=== PATIENT | male | born 1955 ===

== ENCOUNTER 2017-03-16 16:01 | Inpatient (IN) | payer MEDICARE ==
--- NOTE | 2017-03-16 17:03 | ED PDOC ---
HPI: Psych/Substance Abuse Time Seen by Provider: 03/16/17 16:44 Chief Complaint (Nursing): Psychiatric Evaluation Chief Complaint (Provider): Psychiatric Evaluation History Per: Patient History/Exam Limitations: no limitations Onset/Duration Of Symptoms: Days Current Symptoms Are (Timing): Still Present Associated Symptoms: Suicidal Thoughts, Other (Insomnia) Additional Complaint(s): Jeff Smart is a 62 year old male with a history of depression who presents to the ER for psychiatric evaluation. Patient complains of insomnia and suicidal ideation, with a plan to hang himself. Of note, patient was admitted at [facility] and discharged 2 days ago with rxs for cogenin, Depakote, Neurontin, remeron, Risperdal, Zoloft, and desyrel. Patient states he was unable to fill the prescriptions and is requesting medications to sleep. Also complains of back pain, which he attributes to his difficulty sleeping. PMD: None Past Medical History Reviewed: Historical Data, Nursing Documentation, Vital Signs Vital Signs: Last Vital Signs Temp 98.0 F 03/16/17 16:30 Pulse 97 H 03/16/17 16:30 Resp 18 03/16/17 16:30 BP 142/87 03/16/17 16:30 Pulse Ox 99 03/16/17 16:30 - Medical History PMH: Bipolar Disorder, Fractures (right elbow), Chronic Pain (right elbow) Denies: Diabetes, Hepatitis, HIV, HTN, Seizures, Sexually Transmitted Disease - Family History Family History: States: Unknown Family Hx - Immunization History Hx Tetanus Toxoid Vaccination: No Hx Influenza Vaccination: No Hx Pneumococcal Vaccination: No - Home Medications Home Medications: Ambulatory Orders Medication Instructions Recorded Benztropine [Benztropine Mesylate] 1 mg PO HS 03/03/17 Risperidone 3 mg PO HS 03/03/17 Sertraline [Zoloft] 25 mg PO DAILY 03/03/17 Benztropine [Cogentin] 1 mg PO HS #30 tab 03/14/17 Divalproex [Depakote DR] 250 mg PO BID #60 tcp 03/14/17 Gabapentin [Neurontin] 300 mg PO BID #60 cap 03/14/17 Mirtazapine [Remeron] 30 mg PO HS #30 tab 03/14/17 Sertraline [Zoloft] 50 mg PO DAILY #30 tab 03/14/17 risperiDONE [RisperDAL Tab] 3 mg PO HS #30 tab 03/14/17 traZODone [Desyrel] 100 mg PO HS #60 tab 03/14/17 - Allergies Allergies/Adverse Reactions: Allergies Allergy/AdvReac Type Severity Reaction Status Date / Time No Known Allergies Allergy Verified 03/03/17 15:23 Review of Systems ROS Statement: Except As Marked, All Systems Reviewed And Found Negative Musculoskeletal: Positive for: Back Pain Neurological: Positive for: Other (Insomnia) Psych: Positive for: Suicidal ideation (with plan). Negative for: Other ( homicidal ideation) Physical Exam - Reviewed Nursing Documentation Reviewed: Yes Vital Signs Reviewed: Yes - Physical Exam Appears: Positive for: Non-toxic, No Acute Distress Head Exam: Positive for: ATRAUMATIC, NORMAL INSPECTION, NORMOCEPHALIC Skin: Positive for: Normal Color, Warm, Dry Eye Exam: Positive for: EOMI, Normal appearance, PERRL Neck: Positive for: Normal, Painless ROM Cardiovascular/Chest: Positive for: Regular Rate, Rhythm. Negative for: Murmur Respiratory: Positive for: Normal Breath Sounds. Negative for: Respiratory Distress Gastrointestinal/Abdominal: Positive for: Normal Exam, Soft. Negative for: Tenderness Back: Positive for: Other (Mild abrasion noted to mid-thoracic spine, no tenderness elicited and no erythema). Negative for: L CVA Tenderness, R CVA Tenderness, Vertebral Tenderness Extremity: Positive for: Normal ROM. 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 Pt meets criteria for admission and is medically stable for psychiatric admission. DEPRESSION DR. DOUGLAS Medical Decision Making Medical Decision Making: Time: 16:49 Initial Plan: --EKG --Urinalysis --Alcohol serum --CMP --Urine drug screen --CBC w/ differential --Chest x-ray --Motrin 600 mg PO --Placed on 1:1 observation --Pending crisis evaluation Chest X-ray FINDINGS: LUNGS: Clear. PLEURA: No pneumothorax or pleural fluid seen. CARDIOVASCULAR: No radiographic findings to suggest acute or significant cardiovascular disease. OSSEOUS STRUCTURES: No significant abnormalities. VISUALIZED UPPER ABDOMEN: Normal. OTHER FINDINGS: None. IMPRESSION: No active disease. Scribe Attestation: Documented by Erika Mccarty, acting as a scribe for Ben Puente PA-C Provider Scribe Attestation: All medical record entries made by the Scribe were at my direction and personally dictated by me. I have reviewed the chart and agree that the record accurately reflects my personal performance of the history, physical exam, medical decision making, and the department course for this patient. I have also personally directed, reviewed, and agree with the discharge instructions and disposition. Disposition - Clinical Impression Clinical Impression: Depression - Patient ED Disposition Is Patient to be Admitted: Yes - Disposition Disposition Time: 18:00 Condition: STABLE - Pt Status Changed To: Hospital Disposition Of: Inpatient - Admit Certification Admit to Inpatient:: After my assessment, the patient will require hospitalization for at least two midnights. This is because of the severity of symptoms shown, intensity of services needed, and/or the medical risk in this patient being treated as an outpatient.
--- NOTE | 2017-03-16 17:42 | RAD ---
PROCEDURE: CHEST RADIOGRAPH, 1 VIEW HISTORY: routine COMPARISON: None available. FINDINGS: LUNGS: Clear. PLEURA: No pneumothorax or pleural fluid seen. CARDIOVASCULAR: No radiographic findings to suggest acute or significant cardiovascular disease. OSSEOUS STRUCTURES: No significant abnormalities. VISUALIZED UPPER ABDOMEN: Normal. OTHER FINDINGS: None. IMPRESSION: No active disease.
[2017-03-16 17:50] LABS: BASO % 0.7 % (0.0-2.0); EOS # 0.1 K/uL (0.0-0.7); EOS % 0.9 % (0.0-4.0); HEMOGLOBIN 14.1 g/dL (12.0-18.0); LYMPH # 2.4 K/uL (1.0-4.3); LYMPH % 33.8 % (20.0-40.0); MEAN CELL VOLUME 90.3 fl (80.0-94.0); MEAN CORPUSCULAR HEMOGLOBIN 30.7 pg (27.0-31.0); MEAN PLATELET VOLUME 7.7 fl (7.2-11.7); MONO # 0.9 K/uL (0.0-0.8); MONO % 12.5 % (0.0-10.0); NEUT # 3.6 K/uL (1.8-7.0); NEUT % 52.1 % (50.0-75.0); NRBC % 0.2 % (0.0-0.0); RBC 4.59 Mil/uL (4.40-5.90); RED CELL DISTRIBUTION WIDTH 12.9 % (11.5-14.5)
[2017-03-16 18:04] LABS: ALB/GLOB RATIO 1.3 (1.0-2.1); ALBUMIN 4.2 g/dL (3.5-5.0); ALT/SGPT 39 U/L (21-72); AST/SGOT 19 U/L (17-59); BLOOD UREA NITROGEN 22 mg/dl (9-20); CALCIUM 9.1 mg/dL (8.4-10.2); GFR AFRICAN-AMERICAN > 60; GFR NON-AFRICAN AMERICAN > 60
[2017-03-16 19:17] LABS: SQUAMOUS EPITHIAL < 1 /hpf (0-5); URINE BACTERIA RARE (<OCC); URINE BILIRUBIN NEGATIVE (NEGATIVE); URINE BLOOD NEGATIVE (NEGATIVE); URINE CLARITY SLIGHTY-CLOUDY (Clear); URINE COLOR YELLOW (YELLOW); URINE GLUCOSE (UA) NEG (Normal); URINE LEUKOCYTE ESTERASE NEG Leu/uL (Negative); URINE NITRATE NEGATIVE (NEGATIVE); URINE PROTEIN NEGATIVE (NEGATIVE)
[2017-03-16 19:23] LABS: BARBITURATES, UR NEGATIVE (NEGATIVE); BENZODIAZEPINES, UR NEGATIVE (NEGATIVE); OPIATES, UR NEGATIVE (NEGATIVE); PHENCYCLIDINE, UR NEGATIVE (NEGATIVE)
--- NOTE | 2017-03-16 20:58 | PCM.BM ---
<Duc Ozuna - Last Filed: 03/16/17 20:56> Treatment Plan Problems - Problems identified on initial assessmt Hopelessness/Helplessness Date Initiated: 03/16/17 Time Initiated: 20:56 (e) Assessment reference: NA Status: Active Priority: 1 Altered Sleep Pattern Date Initiated: 03/16/17 Time Initiated: 20:56 Assessment reference: NA Status: Active Priority: 2 Treatment assets and liabiliti Patient Assests: cooperative, self-reliant, ADL independent, negotiates basic needs Patient Liabilities: live alone, physical pain, financial problems, poor support system, relationship conflicts, legal issue - Milieu Protocol Maintain good personal hygiene: daily Encourage regular showers, daily Remind patient to perform daily oral care, daily Assist patient to perform ADL's Maintain personal safety: every shift Educate patient to report safety concerns to staff, every shift Monitor environment for contraband/sharps Medication safety: Monitor for expected outcome, potential side effects: every shift, Assess barriers to learning: every shift, Assess readiness for medication education: every shift <Naga Flowers - Last Filed: 03/18/17 16:55> Family Contact Family involvement: Famliy/SO not involved Family contact: Patient declines to allow family contact at present Family contact name: Pt denied. - Goals for Treatment Patient goals for treatment: Pt would like to be prescribed medicartion that will cause him to sleep as his insomnia is his major concern. Discharge/Continuing Care - Education Needs Education Needs: Patient Medication, Patient Diagnosis/Disease Process, Patient Coping Skills, Patient Aftercare Safety Plan - Discharge Discharge Criteria: Tolerates medication w/o severe side effects, Free of Suicidal thoughts, Free of agitation, Normal sleep pattern, Reduction of target symptoms Discharge to:: Home - Treatment Team Participation Discussed with Family/SO: No
[2017-03-16] MEDS ORDERED: Bismuth Subsalicylate 262 mg/15 ml Sus (240 ml) PO PRN (21:13)
[2017-03-16] MEDS ORDERED: Alum-Mag Hydrox-Simethicone Susp (30 mL) PO PRN (21:13)
[2017-03-16] MEDS ORDERED: Magnesium Hydroxide Susp 30 ml UD PO PRN (21:13)
[2017-03-16 21:47] VITALS: O2SAT 98
[2017-03-17] MEDS: Divalproex 250 mg DR(BID formulation) PO SCH ×2 (08:15→16:38)
[2017-03-17] MEDS ORDERED: Influenza Vaccine 18yr & older 0.5 ML/45 MCG SYR IM ONE (09:00)
[2017-03-17 10:38] LABS: T4 6.64 ug/dl (5.5-11.0)
[2017-03-17 10:44] LABS: % IRON SATURATION 33 % (20-55); IRON 95 ug/dL (49-181); TOTAL IRON BINDING CAPACITY 287 ug/dL (250-450)
[2017-03-17 10:56] LABS: FERRITIN 88.2 ng/Ml (17.9-464)
--- NOTE | 2017-03-17 12:16 | CARD ---
APPROVED REPORT EKG Measurement Heart [id number] <Conclusion> Normal sinus rhythm Normal ECG
--- NOTE | 2017-03-17 14:37 | PCM.PSYCH ---
Initial Psychiatric Evaluation - Initial Psychiatric Evaluation Type of Admission: Voluntary Chief Complaint (in patient's own words): presents to 3 via er [facility]-with complaints of suicidal ideation by hanging. reports that has not slept for many days, history of insomnia, bipolar. reports that was recently discharged from [facility] for similar complaints-rx: mirtazepine, valproic acid, desyrel, cogentin. reportedly pt was unable to obtain.l Pt. reports that is receiving SSD related the fracture of arm many years ago. reports that recently lost debit card for 2nd time and was not able to obtain replacement-could not get money to get medicine. Pt. is reportedly homeless for many years after selling home after becoming . Pt. reportedly became after 2nd left him because "I was feeling guilty about having had affair and telling her". Reportedly became depressed and developed insomnia. Pt. reports history of bipolar for more than 20 years. reportedly has been inpt. multiple times for depression/insomnia-becoming more depressed when developing problems sleeping. Pt. has been inpt. on one occasion for suicidal attempt by over dosing on antidepressants-was in hospital and had to have stomach pumped-reports attempt was impulsive. relates most of mood symptoms related to difficulty sleeping. pt. currently living in half way house on [address] [place] ". Pt. reportedly is on parole for allegedly "stealing a tractor (trailer)-was reported caught by police and was incarcerated in [facility]. Reports that was homeless and saw "keys in truck and took it for a ride". Pt. 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 reportedly stopped after reportedly falling "30 feet and shatter right arm". reportedly has had surgeries and there is "both a plate and screws". After falling, was reportedly not able to work and obtained SSD. Pt. has two sisters and two brothers all of which are adults-pt. admits an estranged relationship "don't know why". Denies having persons with which he can talk. Reports when was released from [facility] attempted to obtain opd services at [facility] and [facility]-reportedly was unable to do so. Admits to having been born in [facility] and later related locate to [place], [place]-has been a resident in [place] for over 42 years. Reportedly has completed high school. Denies substance use although urine toxicology was negative. Unable to recall pmd's name, previously treated by psychiatrist names "smooth". Reports that has sister in her seventies who is reportedly in a alf related to "alzheimer's disease". Pt. admits that both of his parents in their eighties related to "alzheimer's disease". Pt. denies having any major problems with memory. reports chronic pain right elbow/hand related to previously mentioned. Pt. reports previous response to "tylenol and motrin at the same time". Pt. reports lithium "had problems?", Zyprea, Rispderal had problems". Reports that n past had mirtazepine/Remeron and "did not work". Reports in past has had depakote and "did not work". Was on tegretol and it "did not work". Unable to give further details related to amount of time taken and doses or specific side effects. Patient's Reaction to Hospitalization: voluntary signed in History of Present Illness and Precipitating Events: see above Current Medications: Active Medications Generic Name Dose Route Start Last Admin Trade Name Freq PRN Reason Stop Dose Admin Acetaminophen 650 mg 03/16/17 21:13 Tylenol 325mg Tab PO Q4 PRN Pain, moderate (4-7) Al Hydrox/Mg Hydrox/Simethicone 30 ml 03/16/17 21:13 Maalox Plus 30 Ml PO Q4 PRN Dyspepsia Benztropine Mesylate 1 mg 03/16/17 22:00 03/16/17 22:12 Cogentin PO 1 mg HS REE Administration Bismuth Subsalicylate 524 mg 03/16/17 21:13 Pepto-Bismol PO Q4 PRN Diarrhea Divalproex Sodium 250 mg 03/17/17 09:00 03/17/17 08:[address](*Bid*) PO 250 mg BID REE Administration Gabapentin 300 mg 03/16/17 21:08 03/17/17 08:13 Neurontin PO 300 mg BID REE Administration Ibuprofen 800 mg 03/16/17 21:19 03/17/17 11:04 Motrin Tab PO 800 mg Q8 PRN Administration 4-10 pain Lorazepam 0.5 mg 03/16/17 21:13 Ativan PO 03/30/17 21:14 HS PRN Insomnia Lorazepam 0.5 mg 03/16/17 21:13 Ativan PO 03/30/17 21:14 Q6 PRN Anixety/Agitation Magnesium Hydroxide 30 ml 03/16/17 21:13 Milk Of Magnesia PO HS PRN Constipation Mirtazapine 30 mg 03/16/17 22:00 03/16/17 22:13 Remeron PO 30 mg HS REE Administration Risperidone 3 mg 03/16/17 22:00 03/16/17 22:13 Risperdal Tab PO 3 mg HS REE Administration Sertraline HCl 50 mg 03/17/17 09:00 03/17/17 08:13 Zoloft PO 50 mg DAILY REE Administration Trazodone HCl 100 mg 03/16/17 22:00 03/16/17 22:12 Desyrel PO 100 mg HS REE Administration Past Psychiatric History - Past Psychiatric History Prior Professional Help: both inpt and opd Prior Psychiatric Treatment: various hospitals including [facility], [facility] and [facility] History of ETOH/Drug Use: 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 for several weeks reports pt episodic use of thc reports smoking 2 cigarettes which is reportedly a decrease from before denies other substance use History of Family Illness: parents and sister with hx of alzheimer's disease Pertinent Medical Hx (Current Medical&Sleep Prob, Allergies): Allergies Allergy/AdvReac Type Severity Reaction Status Date / Time No Known Allergies Allergy Verified 03/03/17 15:23 Benztropine [Benztropine Mesylate] 1 mg PO HS 03/03/17 Risperidone 3 mg PO HS 03/03/17 Sertraline [Zoloft] 25 mg PO DAILY 03/03/17 Benztropine [Cogentin] 1 mg PO HS #30 tab 03/14/17 Divalproex [Depakote DR] 250 mg PO BID #60 tcp 03/14/17 Gabapentin [Neurontin] 300 mg PO BID #60 cap 03/14/17 Mirtazapine [Remeron] 30 mg PO HS #30 tab 03/14/17 Sertraline [Zoloft] 50 mg PO DAILY #30 tab 03/14/17 risperiDONE [RisperDAL Tab] 3 mg PO HS #30 tab 03/14/17 traZODone [Desyrel] 100 mg PO HS #60 tab 03/14/17 Review of Systems - Musculoskeletal Additional comments: right elbow pain/hand pain related to hx of fall many years ago=-reportedly has plate and pins - Psychiatric Psychiatric: Abnormal Sleep Pattern, Anxiety, Hopelessness, Suicidal Ideation Additional comments: reports can contract for safety, hopelessness related group home issue with trouble sleeping Mental Status Examination - Personal Presentation Personal Presentation: Looks older than stated age - Affect Affect: Constricted - Motor Activity Motor Activity: Calm, Psychomotor Retardation - Reliability in Providing Information Reliability in Providing Information: Other Additional comments: mood, ?conflicting aspects of history e.g related to when became ill when left -various amounts of time given - Obsessions/Compulsions Obsessions: Yes Description of Obsession/Compulsion: with not sleeping - Cognitive Functions Orientation: Person, Place, Situation, Time Attention/Concentration: Easily distracted Judgement: Imparied, as evidence by: Other Memory: Recent intact, as evidence by: 05/12 object recall - Risk Risk: Suicidal - Strength & Assets Inventory Strength & Assets Inventory: Cooperative (homeless) DSM 5 DX - DSM 5 DSM 5 Diagnosis: Hx. Bipolar Disease Bipolar I Most Recent Episode Mixed Insomnia hx. right arm fx/remote with plate and screws Homeless Estrangement from siblins - Recommended/Plan of Treatment Treatment Recommendations and Plan of Treatment: admission per attending vital signs/clinical observation per protocol and per status hospitalist consult nutrition consult Start Doxepin 10mg tab-1to 2 tabs po hs prn insomnia*try one first review get up slowly possible falls precautions possible constipation possible changes in mood possible s/i notify staff Start Topamax 25mg po 9a/9p-assess monitor intake/appetite and weight-can increase rx per clinical status Start Doxepin 10mg tab -1 to 2 tabs hs prn for insomnia-try one tab first MVI one tab po day Motrin 800mg po every eight hours prn pain more than 5 out of 10 scale with food Discharge planning in progress repeat cmp-had elevated creatinine and bun Projected ELOS: 3-5 days Prognosis: guarded Discharge Plan and Discharge Criteria: safety - Smoking Cessation Smoking Cessation Initiated: No Reason for not providing: pt defers reports only smoking 1-2 cigarettes per day
[2017-03-17] MEDS ORDERED: Nasal Spray(Ocean spray) NAS PRN (16:54)
--- NOTE | 2017-03-17 19:14 | CP.PCM.HP ---
History of Present Illness - History of Present Illness History of Present Illness: CC: Depression This is a 62 year old male with past medical history significant for bipolar disorder, insomnia, cataract surgery years ago. [facility] depression and recent suicidal attempt. The patient is a poor historian and only able to give limited information. He is noted to be having right arm nerve pain which he has had since 1997 after fx to his right elbow. He is supposed to be on Gabapentin for this however he is noncompliant with his medications. He is also complaining of nasal dryness and irritation at this time. He is also complaining of blurry vision worsening over the last year. No other complaints, denies cp/sob/n/v/d/f/c. Present on Admission - Present on Admission Any Indicators Present on Admission: No Review of Systems - Review of Systems Review of Systems: A 12 point review of systems was conducted and found to be grossly negative other than what was mentioned in the History of Present Illness. Past Patient History - Infectious Disease Hx of Infectious Diseases: None - Past Social History Smoking Status: Former Smoker - CARDIAC Hx Hypertension: No - PULMONARY Hx Tuberculosis: No - NEUROLOGICAL Hx Seizures: No - HEENT Hx HEENT Problems: Yes Other/Comment: Deviated Septum - HEMATOLOGICAL/ONCOLOGICAL Hx Human Immunodeficiency Virus (HIV): No - MUSCULOSKELETAL/RHEUMATOLOGICAL Hx Falls: No Hx Fractures: Yes (right elbow) - GENITOURINARY/GYNECOLOGICAL Hx Sexually Transmitted Disorders: No - PSYCHIATRIC Hx Substance Use: No - SURGICAL HISTORY Hx Surgeries: Yes Other/Comment: hand surgery,plates and screw on right elbow,hernia repair, cataract surgery both eyes - ANESTHESIA Hx Anesthesia: Yes Hx Anesthesia Reactions: No Meds Allergies/Adverse Reactions: Allergies Allergy/AdvReac Type Severity Reaction Status Date / Time No Known Allergies Allergy Verified 03/03/17 15:23 Physical Exam - Additional Findings Additional findings: Physical exam: Constitutional- cooperative, awake, alert, forgetful, thin. Head- NCAT. s Eye- + Anisocoria. + right eye miosis with right eye ptosis. EOMI ENT- normal exam, MMM. Poor dental hygiene. Neck- normal inspection, supple, no JVD Respiratory- CTAB, no wheezes rales rhonchi Cardiovascular- RRR, +S1, +S2 no MRG GI/Abdominal- normal bowel sounds, soft, no mass, no hsm Skin- warm, dry Extremities Exam- normal capillary refill, normal inspection Neurological Exam- alert, awake, oriented Psych- Depressed mood, flat affect Results - Vital Signs Recent Vital Signs: Last Vital Signs Temp 98.2 F 03/17/17 15:34 Pulse 80 03/17/17 15:34 Resp 20 03/17/17 15:34 BP 94/61 L 03/17/17 15:34 Pulse Ox 98 03/16/17 21:46 - Labs Result Diagrams: 03/16/17 17:45 03/16/17 17:45 Labs: Laboratory Results - last 24 hr 03/16/17 03/16/17 03/17/17 19:02 19:02 08:30 Iron TIBC % Saturation Ferritin 88.2 Triglycerides 108 Cholesterol 189 LDL Cholesterol Direct 144 H HDL Cholesterol 35 Vitamin B12 426 Free T4 Thyroxine (T4) 6.64 TSH 3rd Generation 0.78 Urine Color Yellow Urine Clarity Slighty-cloudy Urine pH 5.0 Ur Specific [place] 1.031 H Urine Protein Negative Urine Glucose (UA) Neg Urine Ketones Trace Urine Blood Negative Urine Nitrate Negative Urine Bilirubin Negative Urine Urobilinogen 4.0 Ur Leukocyte Esterase Neg Urine RBC (Auto) 5 H Urine Microscopic WBC 2 Ur Squamous Epith Cells < 1 Urine Bacteria Rare Urine Opiates Screen Negative Urine Methadone Screen Negative Ur Barbiturates Screen Negative Ur Phencyclidine Scrn Negative Ur Amphetamines Screen Negative U Benzodiazepines Scrn Negative U Oth Cocaine Metabols Negative U Cannabinoids Screen Negative 03/17/17 03/17/17 08:30 08:30 Iron 95 TIBC 287 % Saturation 33 Ferritin Triglycerides Cholesterol LDL Cholesterol Direct HDL Cholesterol Vitamin B12 Free T4 0.94 Thyroxine (T4) TSH 3rd Generation Urine Color Urine Clarity Urine pH Ur Specific [place] Urine Protein Urine Glucose (UA) Urine Ketones Urine Blood Urine Nitrate Urine Bilirubin Urine Urobilinogen Ur Leukocyte Esterase Urine RBC (Auto) Urine Microscopic WBC Ur Squamous Epith Cells Urine Bacteria Urine Opiates Screen Urine Methadone Screen Ur Barbiturates Screen Ur Phencyclidine Scrn Ur Amphetamines Screen U Benzodiazepines Scrn U Oth Cocaine Metabols U Cannabinoids Screen Assessment & Plan - Assessment and Plan (Free Text) Plan: ASSESSMENT/PLAN This is a 62 yo male with pmh of bipolar disorder, insomnia, admitted to psychiatry, with progressively worsening blurriness of vision, anisocoria, with miosis of the right eye and ptosis. 1) Anisocoria with miosis and ptosis of the right eye... eval for Ajith's syndrome, also eval for CVA - Consultation with Dr. Magana, neurology for further workup - CT head without contrast and Carotid doppler ordered - Patient denies headache or focal weakness to suggest CVA 2) Hypercholesterolemia - Noted w/ Lipid profile on this admission - Patient is candidate for moderate to severe intesity statin - Start Lipitor 20 mg po HS - Discussed DASH diet w/ patient 3) Neuropathic pain to right arm, chronic - Continue Gabapentin - Ibuprofen PRN 4) Bipolar disorder w/ reported suicidal ideation, w/ insomnia - Zoloft 50 mg po daily - Topamax 25 mg po BID - Trazodone 100 mg po HS - Remeron 30 mg po HS 5) Dry nasal passages - Saline nasal spray PRN Thank you for the consultation.
[2017-03-18] MEDS: Divalproex 250 mg DR(BID formulation) PO SCH (08:50)
[2017-03-18 10:48] LABS: ALB/GLOB RATIO 1.2 (1.0-2.1); ALBUMIN 3.6 g/dL (3.5-5.0); ALT/SGPT 29 U/L (21-72); AST/SGOT 18 U/L (17-59); BLOOD UREA NITROGEN 9 mg/dl (9-20); CALCIUM 9.1 mg/dL (8.4-10.2); GFR AFRICAN-AMERICAN > 60; GFR NON-AFRICAN AMERICAN > 60
--- NOTE | 2017-03-18 11:35 | PCM.PYCHPN ---
Psychiatric Progress Note - Psychiatric Progress Note Patient seen today, length of contact: chart reviewed, case discussed with team Patient Chief Complaint: pt. reports that in past seroquel did not really work for him, he unable to state dose and length of time taken as well forgot conversation had with this policy writer sales related to seroquel and doxepin to be started. admits that had difficulty sleeping last night. pt. is adherent with treatment. presents to [facility] via [facility]-with complaints of suicidal ideation by hanging. reports that has not slept for many days, history of insomnia, bipolar. reports that was recently discharged from [facility] for similar complaints-rx: mirtazepine, valproic acid, desyrel, cogentin. reportedly pt was unable to obtain.l Pt. reports that is receiving SSD related the fracture of arm many years ago. reports that recently lost debit card for 2nd time and was not able to obtain replacement-could not get money to get medicine. Pt. is reportedly homeless for many years after selling home after becoming . Pt. reportedly became after 2nd left him because "I was feeling guilty about having had affair and telling her". Reportedly became depressed and developed insomnia. Pt. reports history of bipolar for more than 20 years. reportedly has been inpt. multiple times for depression/insomnia-becoming more depressed when developing problems sleeping. Pt. has been inpt. on one occasion for suicidal attempt by over dosing on antidepressants-was in ?hospital and had to have stomach pumped-reports attempt was impulsive. relates most of mood symptoms related to difficulty sleeping. pt. [place] [address] Pt. reportedly is on parole for allegedly "stealing a tractor (trailer)-was reported caught by police and was incarcerated in [facility]. Reports that was homeless and saw "keys in truck and took it for a ride". Pt. 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 reportedly stopped after reportedly falling "30 feet and shatter right arm". reportedly has had surgeries and there is "both a plate and screws". After falling, was reportedly not able to work and obtained SSD. Pt. has two sisters and two brothers all of which are adults-pt. admits an estranged relationship "don't know why". Denies having persons with which he can talk. Reports when [facility] [place] [facility] [place] [facility]-reportedly was unable to do so. Admits to having been born in [facility] and later related locate to [place], [place]-has been a resident in [place] for over 42 years. Reportedly has completed high school. Denies substance use although urine toxicology was negative. Unable to recall pmd's name, previously treated by psychiatrist names "smooth". Reports that has sister in her seventies who is reportedly in a half-way related to "alzheimer's disease". Pt. admits that both of his parents in their eighties related to "alzheimer's disease". Pt. denies having any major problems with memory. reports chronic pain right elbow/hand related to previously mentioned. Pt. reports previous response to "tylenol and motrin at the same time". Pt. reports lithium "had problems?", Zyprea, Rispderal had problems". Reports that n past had mirtazepine/Remeron and "did not work". Reports in past has had depakote and "did not work". Was on tegretol and it "did not work". Unable to give further details related to amount of time taken and doses or specific side effects. Problems Identified/Issues Discussed: alteration in mood alteration in coping alteration in sleep Medical Problems: per chart ultra ct pending of neck and chest per medical hospitalist Diagnostic Results: per psychiatry per medicine per nursing per health and social care teacher DSM 5 Symptoms Update: alteration in mood alteration in sleep Medication Change: Yes ([id number],d/cdepakote ) Medical Record Reviewed: Yes Consults ordered or reviewed: being followed by hospitalist Mental Status Examination - Cognitive Function Orientation: Person, Place, Situation, Time Attention: WNL Concentration: WNL Association: WNL Fund of Knowledge: WNL Decription of patient's judgement and insights: impaired - Mood Mood: Depressed, Anxious - Affect Affect: Constricted - Formal Thought Process Formal Thought Process: No Impairment - Homicidal Ideation Homicidal Ideation: No Goal/Treatment Plan - Goal/Treatment Plan Need for Continued Stay: Remain at risks for inpatient hospitalization Progress Toward Problem(s) and Goals/Treatment Plan: admission per attending vital signs/clinical observation per protocol and per status hospitalist consult nutrition consult Continue Doxepin 10mg tab-1to 2 tabs po hs prn insomnia*try one first review get up slowly possible falls precautions possible constipation possible changes in mood possible s/i notify staff Start Topamax 25mg po 9a, 1300, 9p-assess monitor intake/appetite and weight- can increase rx per clinical status stop depakote(pt receiving neurontin and topamax)-pt with hx not follow up valproic acid would require prn b/w-poly pharmacy pt seen by hospitalist creatinine 0.7 today(same as day of admission), bun down to 0.9 today ( improvement from day of admission) will d/c trazodone questionable [id number] d/c risperdone-pt receiving seroquel-polypharmacy on going assessment hydroxyzine pamoate 25mg po hs prn anxiety insomnia treatment plan reviewed with pt verbally agreeable and defers further questions Discharge planning in progress Estimated Date of D/C: 03/28/17 - Smoking Cessation Smoking Cessation Initiated: No Reason for not providing: pt defers
--- NOTE | 2017-03-18 16:32 | CT ---
PROCEDURE: CT HEAD WITHOUT CONTRAST. HISTORY: miosis, ptosis of right eye, r/o cva, mass COMPARISON: None available. TECHNIQUE: Axial computed tomography images were obtained through the head/brain without intravenous contrast. Radiation dose: Total exam DLP = 879 mGy-cm. This CT exam was performed using one or more of the following dose reduction techniques: Automated exposure control, adjustment of the mA and/or kV according to patient size, and/or use of iterative reconstruction technique. FINDINGS: HEMORRHAGE: No intracranial hemorrhage. BRAIN: No mass effect or edema. Mild cerebral atrophy is seen. No cortical effacement is noted. Posterior fossa is unremarkable. Retro-orbital regions are unremarkable. No recent infarct is seen. No focal area of encephalomalacia is noted. Minor small vessel changes in the white matter tracts are not excluded. VENTRICLES: Unremarkable. No hydrocephalus. CALVARIUM: There is evidence of prior ORIF of the anterior maxilla bilaterally with cortical screw plates and wires noted. Mild chronic deformity is seen in these regions. PARANASAL SINUSES: Mild mucosal thickening without air-fluid level. MASTOID AIR CELLS: Mastoid air cells are hypoplastic but appear to be well aerated. Middle ear cavity regions are unremarkable. OTHER FINDINGS: Visualized cavernous sinuses are unremarkable. Pituitary gland is normal in size. No tonsillar ectopia is seen. IMPRESSION: No evidence of recent infarct or intracranial hemorrhage. No appreciable source for patient's reported ptosis and miosis . MRI may prove helpful for further evaluation.
--- NOTE | 2017-03-18 17:42 | CP.PCM.CON ---
History of Present Illness - History of Present Illness History of Present Illness: Mr. Smart is a 62-year-old man with a past medical history of bipolar disorder and previous cateract surgery, who is complaining of worsening blurry vision. 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 I was consulted to assist with the management and care. Review of Systems - Review of Systems All systems: reviewed and no additional remarkable complaints except Past Patient History - Infectious Disease Hx of Infectious Diseases: None - Past Social History Smoking Status: Former Smoker - CARDIAC Hx Hypertension: No - PULMONARY Hx Tuberculosis: No - NEUROLOGICAL Hx Seizures: No - HEENT Hx HEENT Problems: Yes Other/Comment: Deviated Septum - HEMATOLOGICAL/ONCOLOGICAL Hx Human Immunodeficiency Virus (HIV): No - MUSCULOSKELETAL/RHEUMATOLOGICAL Hx Falls: No Hx Fractures: Yes (right elbow) - GENITOURINARY/GYNECOLOGICAL Hx Sexually Transmitted Disorders: No - PSYCHIATRIC Hx Substance Use: No - SURGICAL HISTORY Hx Surgeries: Yes Other/Comment: hand surgery,plates and screw on right elbow,hernia repair, cataract surgery both eyes - ANESTHESIA Hx Anesthesia: Yes Hx Anesthesia Reactions: No Meds Allergies/Adverse Reactions: Allergies Allergy/AdvReac Type Severity Reaction Status Date / Time No Known Allergies Allergy Verified 03/03/17 15:23 - Medications Medications: Current Medications Acetaminophen (Tylenol 325mg Tab) 650 mg PO Q4 PRN PRN Reason: Pain, moderate (4-7) Last Admin: 03/17/17 14:43 Dose: 650 mg Al Hydrox/Mg Hydrox/Simethicone (Maalox Plus 30 Ml) 30 ml PO Q4 PRN PRN Reason: Dyspepsia Atorvastatin Calcium (Lipitor) 20 mg PO DAILY [facility] Benztropine Mesylate (Cogentin) 1 mg PO HS [facility] Last Admin: 03/17/17 21:20 Dose: 1 mg Bismuth Subsalicylate (Pepto-Bismol) 524 mg PO Q4 PRN PRN Reason: Diarrhea Doxepin HCl (Sinequan) 25 mg PO HS PRN PRN Reason: Insomnia Gabapentin (Neurontin) 300 mg PO BID [facility] Last Admin: 03/18/17 08:44 Dose: 300 mg Hydroxyzine Pamoate (Vistaril) 25 mg PO HS PRN PRN Reason: anxiety/insomnia Ibuprofen (Motrin Tab) 800 mg PO Q8 PRN PRN Reason: 4-10 pain Last Admin: 03/18/17 08:45 Dose: 800 mg Lorazepam (Ativan) 0.5 mg PO HS PRN PRN Reason: Insomnia Stop: 03/30/17 21:14 Lorazepam (Ativan) 0.5 mg PO Q6 PRN PRN Reason: Anixety/Agitation Stop: 03/30/17 21:14 Magnesium Hydroxide (Milk Of Magnesia) 30 ml PO HS PRN PRN Reason: Constipation Mirtazapine (Remeron) 30 mg PO HS [facility] Last Admin: 03/17/17 21:20 Dose: 30 mg Quetiapine Fumarate (Seroquel) 300 mg PO HS [facility] Last Admin: 03/17/17 21:21 Dose: Not Given Sertraline HCl (Zoloft) 50 mg PO DAILY [facility] Last Admin: 03/18/17 08:47 Dose: 50 mg Sodium Chloride ([place] Nasal [place]) 1 sprays JUANA Q4 PRN PRN Reason: Nasal congestion Topiramate (Topamax) 25 mg PO BID [facility] Last Admin: 03/18/17 08:45 Dose: 25 mg Topiramate (Topamax) 25 mg PO TID [facility] Last Admin: 03/18/17 14:49 Dose: 25 mg Physical Exam - Eye Exam Pupil Exam: Irregular, Miosis Additional comments: Right eye ptosis, meiosis and evidence of anhydrosis. - Neurological Exam Neurological exam: Alert, CN II-XII Intact, Normal Gait, Oriented x3, Reflexes Normal Results - Vital Signs Recent Vital Signs: Last Vital Signs Temp 97.2 F L 03/18/17 15:57 Pulse 79 03/18/17 15:57 Resp 19 03/18/17 15:57 BP 115/60 03/18/17 15:57 Pulse Ox 98 03/16/17 21:46 - Labs Result Diagrams: 03/16/17 17:45 03/18/17 09:15 Labs: Laboratory Results - last 24 hr 03/18/17 09:15 Sodium 142 Potassium 3.7 Chloride 105 Carbon Dioxide 30 Anion Gap 11 BUN 9 Creatinine 0.7 L Est GFR ( Amer) > 60 Est GFR (Non-Af Amer) > 60 Random Glucose 98 Calcium 9.1 Total Bilirubin 0.4 AST 18 ALT 29 Alkaline Phosphatase 42 Total Protein 6.6 Albumin 3.6 Globulin 3.0 Albumin/Globulin Ratio 1.2 Assessment & Plan (1) Ajith's syndrome Assessment and Plan: There are no significant peripheral symptoms of an infarct, but an MRI of the brain is recommended for further evaluation. This will rule out a middle cranial fossa neoplasm. To determine if there is involvement of the carotid, an MRA of the head/neck can be done as well. He does not have pain, so a dissecting carotid aneurysm is less likely. If these tests are normal, it may be due to a 3rd nerve palsy, Adie pupil or senile meiosis. He may have had damage to the iris sphincter muscle from previous surgeries. Will follow results. Please call back after imaging is completed. Thank you. Status: Acute
--- NOTE | 2017-03-19 12:29 | US ---
PROCEDURE: Duplex ultrasound of the carotid and vertebral arteries. HISTORY: anisocoria, r/o cva COMPARISON: None available. TECHNIQUE: Grayscale and duplex Doppler evaluation of the cervical carotid and vertebral arteries were performed. The common carotid, carotid bifurcations and cervical ICA and proximal ECA were evaluated. The vertebral arteries were evaluated for gross patency and direction. FINDINGS: RIGHT CAROTID ARTERIES: Partially calcified atherosclerotic plaque seen in the both carotid bifurcations extending proximally into and extending distally into the proximal margins of both internal carotid arteries. The right internal carotid artery is also tortuous in appearance. . Maximal right ICA velocity = 130.8 cm/S Maximal left CCA velocity = 126.9 cm/S ICA/CCA Ratio: 1.2 LEFT CAROTID ARTERIES: Maximal left ICA velocity = 91.2 cm/S Maximal left CCA velocity = 126 cm/S ICA/CCA Ratio: 1.0 VERTEBRAL ARTERIES: Right Vertebral Artery: Patent. Antegrade flow. Left Vertebral Artery: Patent. Antegrade flow. OTHER FINDINGS: None. IMPRESSION: There is partially calcified atherosclerotic plaque seen both carotid bifurcations extending proximally into the proximal internal carotid arteries. Elevated velocities bilaterally suggest stenosis ranging between 40-59 %diameter narrowing
--- NOTE | 2017-03-19 13:49 | CP.PCM.PN ---
Subjective - Date & Time of Evaluation Date of Evaluation: 03/19/17 Time of Evaluation: 13:47 - Subjective Subjective: Mr. Smart was seen and examined at the bedside. He is alert, oriented. He denies any headache, dizziness, but states of mild blurred vision of the right eye. He is able to follow simple commands. He is calm and verbalize understanding with his plan of care. There was no untoward events overnight. Objective - Vital Signs/Intake and Output Vital Signs (last 24 hours): Temp Pulse Resp BP Pulse Ox 97.2 F L 62 18 91/62 L 98 03/19/17 06:00 03/19/17 06:00 03/19/17 06:00 03/19/17 06:00 03/16/17 21:46 - Medications Medications: Current Medications Acetaminophen (Tylenol 325mg Tab) 650 mg PO Q4 PRN PRN Reason: Pain, moderate (4-7) Last Admin: 03/17/17 14:43 Dose: 650 mg Al Hydrox/Mg Hydrox/Simethicone (Maalox Plus 30 Ml) 30 ml PO Q4 PRN PRN Reason: Dyspepsia Atorvastatin Calcium (Lipitor) 20 mg PO DAILY [facility] Last Admin: 03/19/17 09:51 Dose: 20 mg Benztropine Mesylate (Cogentin) 1 mg PO HS [facility] Last Admin: 03/18/17 21:15 Dose: 1 mg Bismuth Subsalicylate (Pepto-Bismol) 524 mg PO Q4 PRN PRN Reason: Diarrhea Doxepin HCl (Sinequan) 25 mg PO HS PRN PRN Reason: Insomnia Last Admin: 03/19/17 09:51 Dose: 25 mg Gabapentin (Neurontin) 300 mg PO BID [facility] Last Admin: 03/19/17 09:51 Dose: 300 mg Hydroxyzine Pamoate (Vistaril) 25 mg PO HS PRN PRN Reason: anxiety/insomnia Ibuprofen (Motrin Tab) 800 mg PO Q8 PRN PRN Reason: 4-10 pain Last Admin: 03/18/17 08:45 Dose: 800 mg Lorazepam (Ativan) 0.5 mg PO HS PRN PRN Reason: Insomnia Stop: 03/30/17 21:14 Lorazepam (Ativan) 0.5 mg PO Q6 PRN PRN Reason: Anixety/Agitation Stop: 03/30/17 21:14 Magnesium Hydroxide (Milk Of Magnesia) 30 ml PO HS PRN PRN Reason: Constipation Mirtazapine (Remeron) 30 mg PO HS [facility] Last Admin: 03/18/17 21:15 Dose: 30 mg Quetiapine Fumarate (Seroquel) 300 mg PO HS [facility] Last Admin: 03/18/17 21:15 Dose: 300 mg Sertraline HCl (Zoloft) 50 mg PO DAILY [facility] Last Admin: 03/19/17 09:51 Dose: 50 mg Sodium Chloride ([place] Nasal [place]) 1 sprays JUANA Q4 PRN PRN Reason: Nasal congestion Topiramate (Topamax) 25 mg PO TID [facility] Last Admin: 03/19/17 09:51 Dose: 25 mg - Labs Labs: 03/16/17 17:45 03/18/17 09:15 - Constitutional Appears: No Acute Distress - Head Exam Head Exam: NORMAL INSPECTION - Eye Exam Additional comments: irregular, Miosis. Right eye ptosis, meiosis - Neurological Exam Neurological Exam: Alert, Awake Neuro motor strength exam: Left Upper Extremity: 5, Right Upper Extremity: 5, Left Lower Extremity: 5, Right Lower Extremity: 5 Assessment and Plan (1) Ajith's syndrome Assessment & Plan: Case discussed with Dr. Magana, continue all current medical regimen. Pending MRI of the brain. Status: Acute
[2017-03-19 17:36] LABS: FOLATE 13.9 ng/mL
--- NOTE | 2017-03-19 18:59 | PCM.PYCHPN ---
Psychiatric Progress Note - Psychiatric Progress Note Patient seen today, length of contact: chart reviewed, case discussed with team Patient Chief Complaint: pt is noted to be ambulating about in unit, reportedly had meals in social area with peers, pt. met today with taxation economist, overnight staff report pt. slept for most of maintenance technician 3rd shift, pt. reports that may have been laying in bed with eyes closed but was not sleeping for part of the night. pt rx adherent, required prompting to attend unit based groups. Problems Identified/Issues Discussed: alteration in mood alteration in coping alteration in sleep Medical Problems: per chart Diagnostic Results: per psychiatry per medicine per nursing per social media marketing manager Medication Change: Yes (topamax 25mg po tonight, then tomorrow 50mg po Q12hr) Medical Record Reviewed: Yes Consults ordered or reviewed: dr calzada, neurologist Mental Status Examination - Cognitive Function Orientation: Person, Place, Situation, Time Attention: WNL Concentration: WNL Association: WNL Fund of Knowledge: WN Decription of patient's judgement and insights: impaired - Mood Mood: Anxious - Affect Affect: Broad - Formal Thought Process Formal Thought Process: No Impairment - Homicidal Ideation Homicidal Ideation: No Goal/Treatment Plan - Goal/Treatment Plan Need for Continued Stay: Remain at risks for inpatient hospitalization Progress Toward Problem(s) and Goals/Treatment Plan: admission per attending vital signs/clinical observation per protocol and per status hospitalist consult nutrition consult topamax 25mg po hs tonight x one dose topamax 50mg po q12 hrs starting tomorrow [id number] monitor intake/appetite and weight-can increase rx per clinical status treatment plan reviewed with pt verbally agreeable and defers further questions pt seen by neurologist-mri/mra-pt with metal plates/screws Discharge planning in progress Estimated Date of D/C: 03/21/17 - Smoking Cessation Smoking Cessation Initiated: No Reason for not providing: pt defers
--- NOTE | 2017-03-20 22:36 | PCM.PYCHPN ---
Psychiatric Progress Note - Psychiatric Progress Note Patient seen today, length of contact: chart reviewed, case discussed with team Patient Chief Complaint: pt is noted to be ambulating about in unit, reportedly had meals in social area with peers, pt. met today with net c developer, overnight staff report pt. slept for most of kiln setter, pt. reports that may have been laying in bed with eyes closed but was not sleeping for part of the night. pt rx adherent, required prompting to attend unit based groups without attending or attending minimally. pt was scheduled for ct of head because could not have mri 2nd to ankle bracelet-pt refused once at ct stating per notes"already had ct wants mri". social work faculty member explained to pt as to why not could have mri. pt. is noted periodically to walk up and down unit unassisted, eats and take rx without notable issues. night staff report that pt has been noted to snoring, when awoken for assessment states cant sleep. denies suicidal/ homicidal ideations, denies psychosis. Problems Identified/Issues Discussed: alteration in mood alteration in coping alteration in sleep-resolving Medical Problems: per chart Diagnostic Results: per psychiatry per medicine per nursing per social work faculty member DSM 5 Symptoms Update: improving mood improving sleepi Medication Change: No Medical Record Reviewed: Yes Consults ordered or reviewed: pt being followed by hospitalist/dr. donaldson Mental Status Examination - Cognitive Function Orientation: Person, Place, Situation, Time Attention: WNL Concentration: WNL Association: WNL Fund of Knowledge: WN Decription of patient's judgement and insights: somewhat impaired improving - Mood Mood: Neutral - Affect Affect: Broad - Speech Speech: Appropriate - Formal Thought Process Formal Thought Process: No Impairment - Suicidal Ideation Suicidal Ideation: No - Homicidal Ideation Homicidal Ideation: No Goal/Treatment Plan - Goal/Treatment Plan Need for Continued Stay: Remain at risks for inpatient hospitalization Progress Toward Problem(s) and Goals/Treatment Plan: inpt milieu vital signs/clinical observation per protocol and per status documentation of observed sleep during night pt to be reassessed in am by incoming team, pt. has been minimally participative in groups if at all, has deferred ct inspite of concerns about potential issue ofchanges behind eye-although reports has ct of head in past, admits knowing about this problem and when placed in context of reported changes in vision and receiving explanation that if a ct in past was in fact done-there may have been changes since that time-pt reports understanding as of this writing pt. is not suicidal/not homicidal/not psychotic-is verbally to verbalize understanding of current situation and possible of worsening issues related to potential vision issues, not attending or minimally attending groups-appears pt can likely be discharge in am with follow up with appt. as scheduled unless clinical status changes Estimated Date of D/C: 03/21/17 - Smoking Cessation Smoking Cessation Initiated: No Reason for not providing: pt defers
[2017-03-21 06:22] VITALS: BP 96/61; PULSE 65; RESP 19; TEMP 97.5
--- NOTE | 2017-03-21 08:48 | CP.PCM.PN ---
Subjective - Date & Time of Evaluation Date of Evaluation: 03/21/17 Time of Evaluation: 08:45 - Subjective Subjective: Mr. Smart was seen and examined at the bedside. He is alert and complains of inability to sleep , just laying down in bed. He still refused any diagnostic test such as CTA or MRI. He was able to follow commands but with ptosis of the right eye. He denies any dizziness, lightheadedness, with mild bilateral blurred vision for any distance. He denies any nausea or vomiting. There was no untoward events overnight. Objective - Vital Signs/Intake and Output Vital Signs (last 24 hours): Temp Pulse Resp BP Pulse Ox 97.5 F L 65 19 96/61 L 98 03/21/17 06:00 03/21/17 06:00 03/21/17 06:00 03/21/17 06:00 03/16/17 21:46 - Medications Medications: Current Medications Acetaminophen (Tylenol 325mg Tab) 650 mg PO Q4 PRN PRN Reason: Pain, moderate (4-7) Last Admin: 03/17/17 14:43 Dose: 650 mg Al Hydrox/Mg Hydrox/Simethicone (Maalox Plus 30 Ml) 30 ml PO Q4 PRN PRN Reason: Dyspepsia Atorvastatin Calcium (Lipitor) 20 mg PO DAILY [facility] Last Admin: 03/20/17 08:49 Dose: 20 mg Benztropine Mesylate (Cogentin) 1 mg PO HS [facility] Last Admin: 03/20/17 21:13 Dose: 1 mg Bismuth Subsalicylate (Pepto-Bismol) 524 mg PO Q4 PRN PRN Reason: Diarrhea Doxepin HCl ([place]) 25 mg PO HS PRN PRN Reason: Insomnia Last Admin: 03/19/17 09:51 Dose: 25 mg Gabapentin (Neurontin) 300 mg PO BID [facility] Last Admin: 03/20/17 16:36 Dose: 300 mg Hydroxyzine Pamoate (Vistaril) 25 mg PO HS PRN PRN Reason: anxiety/insomnia Ibuprofen (Motrin Tab) 800 mg PO Q8 PRN PRN Reason: 4-10 pain Last Admin: 03/20/17 16:35 Dose: 800 mg Lorazepam (Ativan) 0.5 mg PO HS PRN PRN Reason: Insomnia Stop: 03/30/17 21:14 Lorazepam (Ativan) 0.5 mg PO Q6 PRN PRN Reason: Anixety/Agitation Stop: 03/30/17 21:14 Magnesium Hydroxide (Milk Of Magnesia) 30 ml PO HS PRN PRN Reason: Constipation Quetiapine Fumarate (Seroquel) 300 mg PO HS REE Last Admin: 03/20/17 21:13 Dose: 300 mg Sodium Chloride ([place] Nasal [place]) 1 sprays JUANA Q4 PRN PRN Reason: Nasal congestion Topiramate (Topamax) 50 mg PO Q12 [facility] Last Admin: 03/20/17 21:13 Dose: 50 mg - Labs Labs: 03/16/17 17:45 03/18/17 09:15 - Constitutional Appears: No Acute Distress - Head Exam Head Exam: NORMAL INSPECTION - Eye Exam Additional comments: ptosis of the right eyelid. meiosis of the right eye - Neurological Exam Neurological Exam: Alert, Awake Neuro motor strength exam: Left Upper Extremity: 5, Right Upper Extremity: 5, Left Lower Extremity: 5, Right Lower Extremity: 5 Additional comments: Neurological unchanged from previous examination. Assessment and Plan (1) Ajith's syndrome Assessment & Plan: Case discussed with Dr. Magana, continue all current medical treatment and recommends CTA and MRi of the brain and neck. Status: Acute
== END 2017-03-21 14:50 | disposition home or self-care (01) | DRG 885 ==
LOC: H.ER 16:01 → H.ERHOLD 18:00 → H.STEP 20:33
PROVIDERS: ADMIT Psychiatry & Neurology Psychiatry; ATTEND Psychiatry & Neurology Psychiatry
PROC: GZHZZZZ Group Psychotherapy (ICD-10-PCS; 2017-03-16)
PROC: 3E0234Z Introduction of Serum, Toxoid and Vaccine into Muscle, Percutaneous Approach (ICD-10-PCS; principal; 2017-03-17)
DX: F31.9 Bipolar disorder, unspecified (principal); G90.2 Horner's syndrome; R45.851 Suicidal ideations; F41.9 Anxiety disorder, unspecified; F51.05 Insomnia due to other mental disorder; H57.02 Anisocoria; H57.03 Miosis; Z59.0 Homelessness; Z23 Encounter for immunization; G89.29 Other chronic pain; E78.00 Pure hypercholesterolemia, unspecified; G47.00 Insomnia, unspecified; H02.401 Unspecified ptosis of right eyelid; J34.89 Other specified disorders of nose and nasal sinuses; Z91.14 Patient's other noncompliance with medication regimen